=== PATIENT | male | born 1955 | race Caucasian/White ===

== ENCOUNTER 2017-09-07 10:18 | Emergency (ER) | payer OTHER ==
[2017-09-07 10:27] VITALS: RESP 18
[2017-09-07 12:04] LABS: PLATELET COUNT 181 10^3/uL (150-400)
--- NOTE | 2017-09-07 13:13 | CPEKG ---
Heart Rate: 54 RR Interval: 1111 P-R Interval: 140 QRSD Interval: 98 QT Interval: 428 QTC Interval: 406 P [place]: 54 QRS [place]: 19 T Wave [place]: 11 EKG Severity - NORMAL ECG - EKG Impression: SINUS RHYTHM Electronically Signed By: Rosalva Thompson 07-Sep-2017 15:25:37
--- NOTE | 2017-09-07 13:41 | EDPHY ---
H & P Time Seen by Provider: 09/07/17 11:48 HPI/ROS: CHIEF COMPLAINT: "I can't control my right leg" HISTORY OF PRESENT ILLNESS: 62-year-old male presents to the emergency department stating that he cannot control his right leg. The patient states that he saw his primary care provider yesterday and had similar complaints in addition to pain in his right hip as well as abdominal pain. The patient has had ongoing abdominal pain for months. He was started on new medication, Protonix, and sertraline and he does not know if this is related to his symptoms today. He has had this same feeling of inability to control his right leg with a tingling sensation in the past. He has no headache. He has no chest pain or difficulty breathing. He states he is able to ambulate. Does not feel weak. No vomiting or diarrhea. No fevers or chills. Patient states this morning he had a near syncopal episode. He does not know if it was related to pain. REVIEW OF SYSTEMS: Constitutional: No fever, no chills. Eyes: No double or blurry vision. ENT: No sore throat. Respiratory: No cough, no shortness of breath. Cardiac: No chest pain. Gastrointestinal: As above. No vomiting or diarrhea. Genitourinary: No dysuria. Musculoskeletal: No neck or back pain. Skin: No rashes. Neurological: No headache. Past Medical/Surgical History: Cervical spine fusion, smoker Social History: Smoking Status: Heavy smoker Physical Exam: General Appearance: Alert, no distress. Mentating normally and answering questions appropriately. Eyes: Pupils equal and round. Extraocular motions are all intact. ENT: Mouth: Mucous membranes moist. Respiratory: No wheezing, rhonchi, or rales, lungs are clear to auscultation. Cardiovascular: Regular rate and rhythm. Gastrointestinal: Abdomen is soft and nontender, no masses, no rebound or guarding, bowel sounds normal. Neurological: Alert and oriented x 3, cranial nerves II through XII grossly intact Skin: Warm and dry, no rashes. Musculoskeletal: Nontender to palpate along the cervical, thoracic or lumbar spine. Neck is supple. Extremities: Full range of motion and no peripheral edema. Normal gait. Reflexes are 2+ and equal for lower extremities bilaterally. Strength is 2+ and equal for lower extremities bilaterally. Psychiatric: Patient is oriented X 3, there is no agitation. Constitutional: Initial Vital Signs Temperature (C) 36.8 C 09/07/17 10:23 Heart Rate 68 09/07/17 10:23 Respiratory Rate 18 09/07/17 10:23 Blood Pressure 155/91 H 09/07/17 10:23 O2 Sat (%) 94 09/07/17 10:23 O2 Delivery Mode Room Air Allergies/Adverse Reactions: No Known Allergies Allergy (Unverified 09/16/12 09:15) Home Medications: Medication Instructions Recorded Aspirin 81mg (*) 09/07/17 Medical Decision Making ED Course/Re-evaluation: 62-year-old male presents with a normal examination. He states that he feels like his right leg is "funny ". He has a normal neurologic examination. His reflexes and strength are normal and equal. The case was discussed with Dr. Rosalva Thompson, secondary supervising physician, who did not directly evaluate the patient but agrees with sending the patient home. Patient has no headache. He has a normal neurologic examination. I encouraged close follow-up with primary care provider. He will continue his medications as prescribed. I did explain to him that the this could be related to adverse reaction to the medication and he can discuss this with his primary care provider. I do not think further intervention or workup is necessary. He is comfortable being discharged home. EKG is refer reviewed by Dr. Rosalva Thompson, see interpretation in trace master. Normal sinus rhythm. Laboratory studies including CBC and chemistries are normal. Differential Diagnosis: Including but not limited to electrolyte abnormality, medication reaction, neuropathy - Data Points Laboratory Results: Laboratory Results 09/07/17 11:50 09/07/17 11:50 09/07/17 09/07/17 11:50 11:50 WBC 6.99 10^3/uL 10^3/uL (3.80-9.50) RBC 5.10 10^6/uL 10^6/uL (4.40-6.38) Hgb 17.5 g/dL g/dL (13.7-17.5) Hct 46.9 % % (40.0-51.0) MCV 92.0 fL fL (81.5-99.8) MCH 34.3 pg H pg (27.9-34.1) MCHC 37.3 g/dL H g/dL (32.4-36.7) RDW 12.2 % % (11.5-15.2) Plt Count 181 10^3/uL 10^3/uL (150-400) MPV 10.1 fL fL (8.7-11.7) Neut % (Auto) 73.3 % % (39.3-74.2) Lymph % (Auto) 18.2 % % (15.0-45.0) [place] % (Auto) 6.9 % % (4.5-13.0) Eos % (Auto) 0.6 % % (0.6-7.6) Baso % (Auto) 0.6 % % (0.3-1.7) Nucleat RBC Rel Count 0.0 % % (0.0-0.2) Absolute Neuts (auto) 5.13 10^3/uL 10^3/uL (1.70-6.50) Absolute Lymphs (auto) 1.27 10^3/uL 10^3/uL (1.00-3.00) Absolute Monos (auto) 0.48 10^3/uL 10^3/uL (0.30-0.80) Absolute Eos (auto) 0.04 10^3/uL 10^3/uL (0.03-0.40) Absolute Basos (auto) 0.04 10^3/uL 10^3/uL (0.02-0.10) Absolute Nucleated RBC 0.00 10^3/uL 10^3/uL (0-0.01) Immature Gran % 0.4 % % (0.0-1.1) Immature Gran # 0.03 10^3/uL 10^3/uL (0.00-0.10) Sodium 142 mEq/L mEq/L (134-144) Potassium 3.8 mEq/L mEq/L (3.5-5.2) Chloride 105 mEq/L mEq/L (97-110) Carbon Dioxide 24 mEq/l mEq/l (22-31) Anion Gap 13 mEq/L mEq/L (8-16) BUN 9 mg/dL mg/dL (7-23) Creatinine 0.8 mg/dL mg/dL (0.7-1.3) Estimated GFR > 60 Glucose 113 mg/dL H mg/dL (70-100) Calcium 9.8 mg/dL mg/dL (8.5-10.4) Total Bilirubin 0.9 mg/dL mg/dL (0.1-1.4) AST 30 IU/L IU/L (17-59) ALT 44 IU/L IU/L (21-72) Alkaline Phosphatase 66 IU/L IU/L (38-126) Total Protein 6.8 g/dL g/dL (6.3-8.2) Albumin 4.3 g/dL g/dL (3.5-5.0) Departure - Departure Disposition: Home, Routine, Self-Care Clinical Impression: Paresthesia and pain of right extremity, Syncope, near Condition: Good Instructions: Paresthesia (ED), Near Syncope (ED) Additional Instructions: Follow up with your primary care provider next week. Please return to the emergency department if you developed difficulty walking, difficulty speaking or swallowing, or if you feel worse in any way. Referrals: [facility] [Other] - 2-3 days without fail
[2017-09-07 13:48] VITALS: BP 145/78; PULSE 78; TEMP 98.6; O2SAT 95
== END 2017-09-07 13:48 | disposition home or self-care (01) ==
DX: R55 Syncope and collapse (principal); R20.2 Paresthesia of skin; F17.200 Nicotine dependence, unspecified, uncomplicated; Z79.82 Long term (current) use of aspirin